=== PATIENT | female | born 1990 | race Caucasian/White ===

== ENCOUNTER 2017-08-20 16:07 | Observation (INO) | payer OTHER ==
[~2017-08-20] VITALS: Ht 160 cm; Wt 70.0 kg
[~2017-08-20 16:07] MED LIST: CELE20TA PO; CELE40TA PO; LORA-392 PO
[2017-08-20] MEDS ORDERED: MORPHINE SULFATE 2 MG/ML INJ IV PUSH PRN (20:15)
[2017-08-20] MEDS ORDERED: ONDANSETRON HCL 4 MG/2 ML VIAL IVP PRN (20:15)
[2017-08-20] MEDS ORDERED: NALOXONE HCL 0.4 MG/ML AMP IV PUSH PRN (20:15)
[2017-08-20] MEDS ORDERED: MORPHINE SULFATE 4 MG/ML INJ IV PUSH PRN (20:15)
[2017-08-20] MEDS ORDERED: SODIUM CHLORIDE 0.9% FLUSH 10 ML FLUSH IV FLUSH PRN (20:15)
[2017-08-20] MEDS ORDERED: ACETAMINOPHEN 325 MG TAB PO PRN (20:15)
[2017-08-20] MEDS: SODIUM CHLOR 0.9% 1000 ML INJ 1,000 ML IV SCH (20:30)
[2017-08-20 20:40] VITALS: BP 100/66; PULSE 52; RESP 17; TEMP 98.2
[2017-08-20] MEDS: SODIUM CHLORIDE 0.9% FLUSH 10 ML FLUSH IV FLUSH SCH (21:00)
[2017-08-20] MEDS ORDERED: PROCHLORPERAZINE INJ 10 MG/2 ML VIAL IV PUSH PRN (23:00)
[2017-08-20 23:44] VITALS: BP 147/73; PULSE 67; RESP 17; TEMP 98.2; O2SAT 99
[2017-08-21] VITALS (10 sets, daily range): BP systolic 119–136; BP diastolic 66–80; PULSE 57–78; RESP 16–18; TEMP 96.6–98.7; O2SAT 97–100
[2017-08-21] MEDS: HYDROmorphone HCL PF 2 MG/ML VIAL IV PUSH PRN ×4 (01:31→22:30)
[2017-08-21 05:20] LABS: AUTOMATED NEUTROPHIL # 10.3 TH/MM3 (1.8-7.7); BASOPHIL % 0.1 % (0.0-2.0); HEMATOCRIT 35.5 % (35.0-46.0); HEMOGLOBIN 12.5 GM/DL (11.6-15.3); LYMPH % 16.1 % (9.0-44.0); LYMPHOCYTE # 2.2 TH/MM3 (1.0-4.8); MEAN CELL VOLUME 93.9 FL (80.0-100.0); MEAN CORPUSCULAR HGB CONC 35.1 % (32.0-36.0); MEAN PLATELET VOLUME 8.7 FL (7.0-11.0); MONO % 8.5 % (0.0-8.0); MONOCYTE # 1.2 TH/MM3 (0-0.9); NEUT % 75.3 % (16.0-70.0); PLATELET COUNT 282 TH/MM3 (150-450); RED BLOOD COUNT 3.78 MIL/MM3 (4.00-5.30); RED CELL DISTRIBUTION WIDTH 13.3 % (11.6-17.2); WHITE BLOOD COUNT 13.7 TH/MM3 (4.0-11.0)
[2017-08-21 05:21] LABS: BICARBONATE 24.1 MEQ/L (21.0-32.0); BLOOD UREA NITROGEN 12 MG/DL (7-18); CALCIUM 7.6 MG/DL (8.5-10.1); CHLORIDE 110 MEQ/L (98-107); CREATININE 0.58 MG/DL (0.50-1.00); GLOMERULAR FILTRATION RATE 124 ML/MIN (>89); GLUCOSE,RANDOM 113 MG/DL (74-106); SODIUM (NA) 141 MEQ/L (136-145)
[2017-08-21 05:25] LABS: TROPONIN I LESS THAN 0.02 NG/ML (0.02-0.05)
[2017-08-21] MEDS: SODIUM CHLOR 0.9% 1000 ML INJ 1,000 ML IV SCH ×3 (08:32→20:30)
[2017-08-21] MEDS: SODIUM CHLORIDE 0.9% FLUSH 10 ML FLUSH IV FLUSH SCH ×2 (08:33→21:00)
--- NOTE | 2017-08-21 08:55 | HHI.HP ---
[facility]Staff Admission Diagnosis Diagnoses: (1) Pancreatitis Diagnosis: Principal Chief Complaint: nausea/vomiting, abdominal pain Travel History International Travel<30 Days: No Contact w/Intl Traveler <30 Da: No History of Present Illness Written by Pam Grewal, acting as scribe for Dr. Boateng on 08/21/17 at 08: 55. 27-year-old female with history of migraines, anxiety, depression, presents with a 2 day history of intractable nausea/vomiting and abdominal pain. Symptoms began at 11pm night 08/19. Last meal 5pm night. Denies eating anything out of the ordinary. She states she presented to [place] [facility] because she had intractable nausea/vomiting every 30-45minutes. She also reports diffuse lower abdominal pain. Denies any headache, visual changes, cough , fevers/chills, night sweats, diarrhea, or constipation. Denies any history of gallbladder disease. She reports occasional episodes of nausea but never this severe. Denies any NSAID use. Takes Celexa and Fioricet on a regular basis. She denies any other medical complaints at this time. Review of Systems Except as stated in HPI: all other systems reviewed are Neg Past Family Social History Past Medical History migraines anxiety depression Past Surgical History No prior surgeries Reported Medications Ativan (Lorazepam) 0.5 Mg Tab 0.5 Mg PO DAILY PRN Celexa (Citalopram Hydrobromide) 40 Mg Tab 40 Mg PO DAILY Celexa (Citalopram Hydrobromide) 20 Mg Tab 20 Mg PO DAILY Fioricet prn Allergies: Coded Allergies: sumatriptan (Verified Allergy, Severe, 08/20/17) Active Ordered Medications Current Medications Medications (Trade) Dose Ordered Sig/Bernarda Route Start Time Stop Time Status Last Admin Sodium Chloride 1,000 ml @ 125 mls/hr Q8H IV 08/20/17 20:30 08/21/17 08:32 (NS Flush) 2 ml UNSCH PRN IV FLUSH 08/20/17 20:15 08/21/17 01:32 (NS Flush) 2 ml BID IV FLUSH 08/20/17 21:00 08/21/17 08:33 (Tylenol) 650 mg Q4H PRN PO 08/20/17 20:15 (Narcan Inj) 0.4 mg UNSCH PRN IV PUSH 08/20/17 20:15 (Compazine Inj) 5 mg Q4H PRN IV PUSH 08/20/17 23:00 08/21/17 08:33 (Dilaudid Pf Inj) 0.5 mg Q4H PRN IV PUSH 08/20/17 23:00 08/21/17 01:31 Family History Mother with cancer "just outside the pelvic wall" Social History Denies tobacco or illicit drug use. Drinks a glass of wine every 3-6months. Had 1 beer the other day. Physical Exam Vital Signs Vital Signs Date Time Temp Pulse Resp B/P (MAP) Pulse Ox O2 Delivery O2 Flow Rate FiO2 08/21/17 04:37 98.2 58 16 120/68 (85) 97 08/21/17 04:00 66 08/21/17 02:16 78 08/20/17 23:44 98.2 67 17 147/73 (97) 99 08/20/17 20:40 98.2 52 17 100/66 (77) Physical Exam GENERAL: Well-nourished, well-developed young female patient in [facility]. Resting in bed. SKIN: Warm and dry. No rash. HEAD: Normocephalic. Atraumatic. EYES: Pupils equal and round. No scleral icterus. No injection or drainage. ENT: No nasal bleeding or discharge. Mucous membranes pink and moist. NECK: Supple. Trachea midline. CARDIOVASCULAR: Regular rate and rhythm. S1, S2 noted. No murmur appreciated. RESPIRATORY: No accessory muscle use. Clear to auscultation. Breath sounds equal bilaterally. GASTROINTESTINAL: Abdomen soft, nondistended, RLQ TTP, no epigastric or RUQ tenderness. Normoactive bowel sounds x4. MUSCULOSKELETAL: No obvious deformities. Extremities without clubbing, cyanosis , or edema. NEUROLOGICAL: Awake and alert. No obvious cranial nerve deficits. Motor grossly within normal limits. Normal speech. PSYCHIATRIC: Appropriate mood and affect; insight and judgment normal. Laboratory Laboratory Tests Test 08/21/17 04:45 White Blood Count 13.7 Red Blood Count 3.78 Hemoglobin 12.5 Hematocrit 35.5 Mean Corpuscular Volume 93.9 Mean Corpuscular Hemoglobin 33.0 Mean Corpuscular Hemoglobin Concent 35.1 Red Cell Distribution Width 13.3 Platelet Count 282 Mean Platelet Volume 8.7 Neutrophils (%) (Auto) 75.3 Lymphocytes (%) (Auto) 16.1 Monocytes (%) (Auto) 8.5 Eosinophils (%) (Auto) 0.0 Basophils (%) (Auto) 0.1 Neutrophils # (Auto) 10.3 Lymphocytes # (Auto) 2.2 Monocytes # (Auto) 1.2 Eosinophils # (Auto) 0.0 Basophils # (Auto) 0.0 CBC Comment DIFF FINAL Differential Comment Blood Urea Nitrogen 12 Creatinine 0.58 Random Glucose 113 Calcium Level 7.6 Sodium Level 141 Potassium Level 3.3 Chloride Level 110 Carbon Dioxide Level 24.1 Anion Gap 7 Estimat Glomerular Filtration Rate 124 Troponin I LESS THAN 0.02 Lipase 471 Result Diagram: 08/21/1744408/21/17444 Caprini VTE Risk Assessment Caprini VTE Risk Assessment: No/Low Risk (score <= 1) Caprini Risk Assessment Model Point Value = 1 Point Value = 2 Point Value = 3 Point Value = 5 Age 41-60 Minor surgery BMI > 25 kg/m2 Swollen legs Varicose veins or History of unexplained or recurrent spontaneous Oral contraceptives or hormone replacement Sepsis (< 1 month) Serious lung disease, including pneumonia (< 1 month) Abnormal pulmonary function Acute myocardial infarction Congestive heart failure (< 1 month) History of inflammatory bowel disease Medical patient at bed rest Age 61-74 Arthroscopic surgery Major open surgery (> 45 min) Laparoscopic surgery (> 45 min) Malignancy Confined to bed (> 72 hours) Immobilizing plaster cast Central venous access Age >= 75 History of VTE Family history of VTE Factor V Leiden Prothrombin [id number] Lupus anticoagulant Anticardiolipin antibodies Elevated serum homocysteine Heparin-induced thrombocytopenia Other congenital or acquired thrombophilia Stroke (< 1 month) Elective arthroplasty Hip, pelvis, or leg fracture Acute spinal cord injury (< 1 month) Prophylaxis Regimen Total Risk Factor Score Risk Level Prophylaxis Regimen 0-1 Low Early ambulation 2 Moderate Order ONE of the following: *Sequential Compression Device (SCD) *Heparin 5000 units SQ BID 3-4 Higher Order ONE of the following medications: *Heparin 5000 units SQ TID *Enoxaparin/Lovenox 40 mg SQ daily (WT < 150 kg, CrCl > 30 mL/min) *Enoxaparin/Lovenox 30 mg SQ daily (WT < 150 kg, CrCl > 10-29 mL/min) *Enoxaparin/Lovenox 30 mg SQ BID (WT < 150 kg, CrCl > 30 mL/min) AND/OR *Sequential Compression Device (SCD) 5 or more Highest Order ONE of the following medications: *Heparin 5000 units SQ TID (Preferred with Epidurals) *Enoxaparin/Lovenox 40 mg SQ daily (WT < 150 kg, CrCl > 30 mL/min) *Enoxaparin/Lovenox 30 mg SQ daily (WT < 150 kg, CrCl > 10-29 mL/min) *Enoxaparin/Lovenox 30 mg SQ BID (WT < 150 kg, CrCl > 30 mL/min) AND *Sequential Compression Device (SCD) Assessment and Plan Problem List: (1) Pancreatitis ICD Code: K85.90 - Acute pancreatitis without necrosis or infection, unspecified Assessment and Plan 27-year-old female with history of migraines, anxiety, depression, presents with a 2 day history of intractable nausea/vomiting and abdominal pain. Acute Pancreatitis: Lipase 1286 upon arrival. With intractable nausea/vomiting. No hx of alcohol abuse. Need to rule out gallstone pancreatitis. +leukocytosis with WBC 12.3 --> 13.7, suspect reactive to vomiting. -Keep NPO for now -Give supportive treatment with IVF, antiemetics, and pain control as needed -Check abdominal CT -Check LFTs -Repeat lipase 471, improved RLQ Abdominal Pain: unclear etiology -check abdominal CT as above -UA unremarkable, however sent for culture, will follow Migraines/Anxiety/Depression: chronic -continue patient's celexa once med rec updated DVT Prophylaxis: teds/scds This note was transcribed by jeri Grewal. I, Dr. Ernesto Boateng personally performed the history, physical exam, and medical decision making; and confirmed the accuracy of the information in the transcribed note. Authenticated by Dr. Ernesto Boateng on 08/21/17 at 10:07. Discussed Condition With Patient, RN Problem Qualifiers (1) Pancreatitis: Pam Grewal PA-C Aug 21, 2017 08:55 Ernesto Boateng MD Aug 21, 2017 10:08
[2017-08-21 09:05] LABS: ALBUMIN 3.6 GM/DL (3.4-5.0); DIRECT BILIRUBIN ADULT 0.1 MG/DL (0.0-0.2)
[2017-08-21 09:07] LABS: INDIRECT BILIRUBIN 0.3 MG/DL (0.0-0.8); TOTAL BILIRUBIN ADULT 0.4 MG/DL (0.2-1.0); TOTAL PROTEIN 6.8 GM/DL (6.4-8.2)
[2017-08-21] MEDS ORDERED: DIATRIZOATE MEGLUM/DIATRIZOATE SOD 9 ML CUP PO ONE ×2 (10:00→10:15)
[2017-08-21] MEDS ORDERED: BUTA1CAP PO (10:15)
[2017-08-21] MEDS ORDERED: IOHEXOL 350 MG/ML 10 ML VIAL (for RAD DIAG) IVCONTRAST ONE (12:51)
[2017-08-21] MEDS ORDERED: PROMETHAZINE INJ 25 MG/ML VIAL IM ONE (13:00)
--- NOTE | 2017-08-21 13:11 | RADRPT ---
EXAM DATE/TIME: 08/21/2017 12:38 [place] COMPARISON: No previous studies available for comparison. INDICATIONS : Right side abdominal pain and nausea. IV CONTRAST: 90 cc Omnipaque 350 (iohexol) IV ORAL CONTRAST: Prescribed oral contrast ingested. RADIATION DOSE: 6.75 CTDIvol (mGy) MEDICAL HISTORY : None SURGICAL HISTORY : None. ENCOUNTER: Initial ACUITY: 3 days PAIN SCALE: 5/10 LOCATION: Right abdomen TECHNIQUE: Volumetric scanning of the abdomen and pelvis was performed. Using automated exposure control and ad justment of the mA and/or kV according to patient size, radiation dose was kept as low as reasonably achievable to obtain optimal diagnostic quality images. DICOM format image data is available electro nically for review and comparison. FINDINGS: LOWER LUNGS: The visualized lower lungs are clear. LIVER: There is decreased attenuation throughout the liver. No focal lesion is seen. There is no dilation of the biliary tree. No calcified gallstones. SPLEEN: Normal size without lesion. PANCREAS: Within normal limits. KIDNEYS: Normal in size and shape. There is no mass, stone or hydronephrosis. ADRENAL GLANDS: Within normal limits. VASCULAR: There is no aortic aneurysm. BOWEL/MESENTERY: The stomach, small bowel, and colon demonstrate no acute abnormality. There is no free intraperitone al air or fluid. The appendix is normal. ABDOMINAL WALL: Within normal limits. RETROPERITONEUM: There is no lymphadenopathy. BLADDER: No wall thickening or mass. REPRODUCTIVE: Within normal limits. INGUINAL: There is no lymphadenopathy or hernia. MUSCULOSKELETAL: Within normal limits for patient age. CONCLUSION: 1. No acute abnormality is seen. 2. Hepatic steatosis. Jhoan Bear MD on August 21, 2017 at 13:07 Board Certified Radiologist. This report was verified electronically.
[2017-08-21] MEDS ORDERED: POTASSIUM CHLOR 20 MEQ PREMIX 100 ML IV ONE (13:15)
[2017-08-21] MEDS ORDERED: METOCLOPRAMIDE HCL 10 MG/2 ML VIAL IV PUSH ONE (17:45)
[2017-08-21] MEDS ORDERED: TRIMETHOBENZAMIDE INJ 200 MG/2 ML VIAL IM PRN (17:45)
[2017-08-21] MEDS ORDERED: PROMETHAZINE INJ 25 MG/ML VIAL IM PRN (17:45)
[2017-08-22] VITALS (11 sets, daily range): BP systolic 119–137; BP diastolic 63–86; PULSE 55–78; RESP 16–18; TEMP 97–100.7; O2SAT 97–100
[2017-08-22] MEDS: SODIUM CHLOR 0.9% 1000 ML INJ 1,000 ML IV SCH ×3 (04:06→22:28)
[2017-08-22] MEDS: HYDROmorphone HCL PF 2 MG/ML VIAL IV PUSH PRN (04:07)
[2017-08-22 07:21] LABS: ALBUMIN 3.5 GM/DL (3.4-5.0); ALT (GPT) 27 U/L (10-53); AST (GOT) 18 U/L (15-37); BICARBONATE 23.6 MEQ/L (21.0-32.0); BLOOD UREA NITROGEN 6 MG/DL (7-18); CALCIUM 8.1 MG/DL (8.5-10.1); CHLORIDE 107 MEQ/L (98-107); CREATININE 0.47 MG/DL (0.50-1.00); GLOMERULAR FILTRATION RATE 158 ML/MIN (>89); GLUCOSE,RANDOM 76 MG/DL (74-106); SODIUM (NA) 139 MEQ/L (136-145)
[2017-08-22 07:23] LABS: ALKALINE PHOSPHATASE 90 U/L (45-117); TOTAL BILIRUBIN ADULT 0.5 MG/DL (0.2-1.0); TOTAL PROTEIN 6.9 GM/DL (6.4-8.2)
[2017-08-22] MEDS ORDERED: POTASSIUM CHLORIDE 20 MEQ CONTROLLED RELEASE TAB PO ONE (08:00)
--- NOTE | 2017-08-22 08:49 | HHI.PR ---
Subjective Remarks Follow up for pancreatitis, migraine, nausea/vomiting. The patient reports abdominal pain resolved. She is still having migraine headache with nausea and occasional vomiting. Denies fevers/chills. RN reports heard patient gagging in the bathroom, but no witnessed vomiting. Discussed with the patient, will stop IV Dilaudid as this can be contributing to nausea/vomiting. Patient requesting phenergan be continued because she did get some relief with this yesterday. She takes fioricet at home for migraines and is agreeable to try this if not vomiting. Objective Vitals Vital Signs Date Time Temp Pulse Resp B/P (MAP) Pulse Ox O2 Delivery O2 Flow Rate FiO2 08/22/17 07:07 99.0 63 18 119/65 (83) 97 08/22/17 04:09 59 08/22/17 03:12 98.0 63 18 121/69 (86) 99 08/22/17 00:09 78 08/21/17 20:03 59 08/21/17 19:45 98.7 57 18 119/66 (83) 100 08/21/17 16:00 98.0 70 18 121/69 (86) 99 08/21/17 15:15 57 08/21/17 12:00 96.6 59 18 133/66 (88) 100 I/O 08/21/17 08/21/17 08/21/17 08/22/17 08/22/17 08/22/17 07:00 15:00 23:00 07:00 15:00 23:00 Intake Total 1000 ml Balance 1000 ml Intake IV Total 1000 ml # Voids 4 Result Diagram: 08/21/17 0445 08/22/17 0556 Imaging Last Impressions Abdomen/Pelvis CT 08/21/17 0000 Signed Impressions: Service Date/Time: Monday, August 21, 2017 12:38 - CONCLUSION: 1. No acute abnormality is seen. 2. Hepatic steatosis. Jhoan Bear MD Objective Remarks GENERAL: Well-nourished, well-developed young female patient in [facility]. SKIN: Warm and dry. No rash. HEENT: Normocephalic. Atraumatic. Pupils equal and round. Mucous membranes pink and moist. CARDIOVASCULAR: Regular rate and rhythm. S1, S2 noted. No murmur appreciated. RESPIRATORY: No accessory muscle use. Clear to auscultation. Breath sounds equal bilaterally. GASTROINTESTINAL: Abdomen soft, non-tender, nondistended. Normoactive bowel sounds x4. MUSCULOSKELETAL: No obvious deformities. Extremities without clubbing, cyanosis , or edema. NEUROLOGICAL: Awake and alert. No obvious cranial nerve deficits. Motor grossly within normal limits. Normal speech. PSYCHIATRIC: Appropriate mood and affect; insight and judgment normal. Medications and IVs Current Medications Medications (Trade) Dose Ordered Sig/Bernarda Route Start Time Stop Time Status Last Admin Sodium Chloride 1,000 ml @ 125 mls/hr Q8H IV 08/20/17 20:30 08/22/17 04:06 (NS Flush) 2 ml UNSCH PRN IV FLUSH 08/20/17 20:15 08/21/17 01:32 (NS Flush) 2 ml BID IV FLUSH 08/20/17 21:00 08/22/17 09:58 (Tylenol) 650 mg Q4H PRN PO 08/20/17 20:15 (Narcan Inj) 0.4 mg UNSCH PRN IV PUSH 08/20/17 20:15 (Phenergan Inj) 12.5 mg Q6H PRN IM 08/21/17 17:45 (Tigan Inj) 200 mg Q6H PRN IM 08/21/17 17:45 (Fioricet 325-50-40) 1 tab Q6H PRN PO 08/22/17 09:00 A/P Problem List: (1) Pancreatitis ICD Code: K85.90 - Acute pancreatitis without necrosis or infection, unspecified Assessment and Plan 27-year-old female with history of migraines, anxiety, depression, presents with a 2 day history of intractable nausea/vomiting and abdominal pain. Acute Pancreatitis: Lipase 1286 upon arrival. With intractable nausea/vomiting. No hx of alcohol abuse. Need to rule out gallstone pancreatitis. +leukocytosis with WBC 12.3 --> 13.7, suspect reactive to vomiting. -Initially kept NPO, now diet advanced -Give supportive treatment with IVF, antiemetics, and pain control as needed -Check abdominal CT -LFTs wnl, and lipase trended 1286 --> 471 --> 239 -pancreatitis resolved Intractable Nausea/Vomiting: possibly secondary to migraine, pancreatitis resolved as above -symptoms not relieved by zofran -continue phenergan IM prn -clear liquid diet for now -1300hrs: patient still vomiting, discussed with Dr. Boateng, will consult gastroenterology for possible EGD RLQ Abdominal Pain: unclear etiology -abdominal CT reviewed and unremarkable -UA unremarkable, urine culture with mixed johny -pain resolved Migraines/Anxiety/Depression: chronic -continue patient's celexa once med rec updated DVT Prophylaxis: teds/scds Problem Qualifiers (1) Pancreatitis: Pam Grewal PA-C Aug 22, 2017 08:49
[2017-08-22] MEDS ORDERED: ACETAMIN 325 MG/BUTALBITAL 50 MG/CAFFEINE 40 MG TAB PO PRN (09:00)
[2017-08-22] MEDS ORDERED: PROMETHAZINE INJ 25 MG/ML VIAL IM ONE (09:00)
[2017-08-22] MEDS: SODIUM CHLORIDE 0.9% FLUSH 10 ML FLUSH IV FLUSH SCH ×2 (09:58→21:00)
[2017-08-22] MEDS ORDERED: PROM25TA10 PO (12:48)
--- NOTE | 2017-08-22 12:48 | HHI.DCPOC ---
Discharge Care Plan Diagnosis: (1) Pancreatitis (2) Migraine (3) Nausea & vomiting Goals to Promote Your Health * To prevent worsening of your condition and complications * To maintain your health at the optimal level Directions to Meet Your Goals Take your medications as prescribed Follow your dietary instruction Follow activity as directed Keep your appointments as scheduled Take your immunizations and boosters as scheduled If your symptoms worsen call your PCP, if no PCP go to Urgent Care Center or Emergency Room Smoking is Dangerous to Your Health. Avoid second hand smoke Call the 24-hour hour crisis hotline for domestic abuse at Pam Grewal PA-C Aug 22, 2017 12:48 pm
[2017-08-22] MEDS ORDERED: PANTOPRAZOLE SODIUM 40 MG VIAL IV PUSH SCH (14:00)
[2017-08-22] MEDS ORDERED: TEMAZEPAM 15 MG CAP PO PRN (19:00)
--- NOTE | 2017-08-22 19:03 | MB ---
cc: ALHAJI CLAROS DATE OF CONSULTATION: 08/22/2017. REASON FOR CONSULTATION: Abdominal pain, nausea and vomiting. DATE OF : 1990. REQUESTING PHYSICIAN: Dr. Srivastava. HISTORY OF PRESENT ILLNESS: Thank you for the consult. The patient is a 27-year-old lady who has been doing okay with no previous issues until . She states she was eating pizza and then after that during the night she vomited the pizza and started having abdominal discomfort and nausea and vomiting. No coffee-ground and no hematemesis. The pain was 5-6/10 in the mid epigastric area. Then today she started having soft stool. She denies any other symptoms. No heavy drinking. No bladder disease. MEDICATIONS: She takes medication for depression and migraine headaches. REVIEW OF SYSTEMS: All twelve-point negative except as noted in the history of present illness. PAST MEDICAL HISTORY: Significant for depression, anxiety and migraine headaches. PAST SURGICAL HISTORY: None. ALLERGIES: 1. SOMA. 2. TRIPTAN. FAMILY HISTORY: Pelvic wall cancer. SOCIAL HISTORY: No tobacco, drugs or alcohol except minimal, all on a social basis. PHYSICAL EXAMINATION: GENERAL: Alert, oriented, in no acute distress. VITAL SIGNS: Vital signs are stable at this time. No fever or chills. HEAD, EYES, EARS, NOSE, THROAT: Pupils are round and reactive to light. NECK: The neck is supple. CHEST: Clear to auscultation and percussion. CARDIAC: Regular rate and rhythm. No murmur or gallop. ABDOMEN: Abdomen soft with mild tenderness in the upper abdomen and diffuse discomfort. EXTREMITIES: No edema, clubbing or cyanosis. NEUROLOGIC: Neurologically intact. No focal abnormality. PSYCHIATRIC: Psychologically appropriate. SKIN: Clear. LABORATORY DATA: Liver function tests completely normal. Lipase 471. Sodium 139, potassium 3.2, BUN 6, creatinine 0.47. White count 13.7, hemoglobin 12.5, platelets 282,000. IMAGING STUDIES: CT scan was negative. ASSESSMENT: This is a 27-year-old lady with abdominal pain, nausea and vomiting, elevated lipase, so she could have mild pancreatitis but also could be gastroenteritis. RECOMMENDATIONS AND PLAN: 1. I recommend conservative management. 2. If she continues to have diarrhea, we could do stool studies. 3. I doubt that any endoscopy will be beneficial at this time. 4. She might have biliary pancreatitis. 5. Will monitor her lipase. Further plan depends on how she is doing. MD SEAMUS Pacheco/MARINO /6:37 PM /6:49 PM
[2017-08-23 00:01] VITALS: PULSE 65
[2017-08-23 03:36] VITALS: BP 126/84; PULSE 62; RESP 18; TEMP 98.4; O2SAT 98
[2017-08-23 04:11] VITALS: PULSE 68
[2017-08-23] MEDS: SODIUM CHLOR 0.9% 1000 ML INJ 1,000 ML IV SCH ×2 (04:15→08:01)
[2017-08-23 06:10] LABS: AUTOMATED NEUTROPHIL # 7.1 TH/MM3 (1.8-7.7); BASOPHIL % 0.4 % (0.0-2.0); EOSINOPHIL % 0.1 % (0.0-4.0); HEMATOCRIT 40.4 % (35.0-46.0); HEMOGLOBIN 14.1 GM/DL (11.6-15.3); LYMPH % 18.7 % (9.0-44.0); LYMPHOCYTE # 1.9 TH/MM3 (1.0-4.8); MEAN CELL VOLUME 93.4 FL (80.0-100.0); MEAN CORPUSCULAR HEMOGLOBIN 32.6 PG (27.0-34.0); MEAN CORPUSCULAR HGB CONC 34.9 % (32.0-36.0); MEAN PLATELET VOLUME 9.2 FL (7.0-11.0); MONO % 10.3 % (0.0-8.0); NEUT % 70.5 % (16.0-70.0); PLATELET COUNT 321 TH/MM3 (150-450); RED BLOOD COUNT 4.32 MIL/MM3 (4.00-5.30); RED CELL DISTRIBUTION WIDTH 13.2 % (11.6-17.2); WHITE BLOOD COUNT 10.1 TH/MM3 (4.0-11.0)
[2017-08-23 06:44] LABS: BICARBONATE 22.7 MEQ/L (21.0-32.0); CALCIUM 8.2 MG/DL (8.5-10.1); CREATININE 0.58 MG/DL (0.50-1.00)
[2017-08-23 07:26] VITALS: BP 113/67; PULSE 63; RESP 20; TEMP 99; O2SAT 99
[2017-08-23 07:30] VITALS: PULSE 63
[2017-08-23] MEDS ORDERED: POTASSIUM CHLORIDE 20 MEQ CONTROLLED RELEASE TAB PO ONE (08:00)
[2017-08-23] MEDS: SODIUM CHLORIDE 0.9% FLUSH 10 ML FLUSH IV FLUSH SCH (09:00)
--- NOTE | 2017-08-23 09:33 | HHI.PR ---
Subjective Remarks Follow up for pancreatitis, migraine, nausea/vomiting. The patient reports improvement this morning. Denies any further headache. No vomiting since last night. Did have 3 episodes of nonbloody diarrhea overnight. Denies fevers/ chills. Denies abdominal pain. She is tolerating some liquids. Denies any other medical complaints at this time. Objective Vitals Vital Signs Date Time Temp Pulse Resp B/P (MAP) Pulse Ox O2 Delivery O2 Flow Rate FiO2 08/23/17 07:26 99.0 63 20 113/67 (82) 99 08/23/17 04:11 68 08/23/17 03:36 98.4 62 18 126/84 (98) 98 08/23/17 00:01 65 08/22/17 23:37 99.1 73 18 130/74 (92) 99 08/22/17 20:05 56 08/22/17 19:43 98.2 59 18 136/83 (100) 100 08/22/17 15:32 100.7 59 18 137/63 (87) 99 08/22/17 15:30 56 08/22/17 11:30 97.0 60 16 136/86 (103) 100 I/O 08/22/17 08/22/17 08/22/17 08/23/17 08/23/17 08/23/17 07:00 15:00 23:00 07:00 15:00 23:00 Intake Total 1000 ml 1000 ml Balance 1000 ml 1000 ml IV Total 1000 ml 1000 ml # Voids 4 4 Result Diagram: 08/23/17 0518 08/23/17 0518 Imaging Last Impressions Abdomen/Pelvis CT 08/21/17 0000 Signed Impressions: Service Date/Time: Monday, August 21, 2017 12:38 - CONCLUSION: 1. No acute abnormality is seen. 2. Hepatic steatosis. Jhoan Bear MD Objective Remarks GENERAL: Well-nourished, well-developed young female patient in [facility]. SKIN: Warm and dry. No rash. HEENT: Normocephalic. Atraumatic. Pupils equal and round. Mucous membranes pink and moist. CARDIOVASCULAR: Regular rate and rhythm. S1, S2 noted. No murmur appreciated. RESPIRATORY: No accessory muscle use. Clear to auscultation. Breath sounds equal bilaterally. GASTROINTESTINAL: Abdomen soft, non-tender, nondistended. Normoactive bowel sounds x4. MUSCULOSKELETAL: No obvious deformities. Extremities without clubbing, cyanosis , or edema. NEUROLOGICAL: Awake and alert. No obvious cranial nerve deficits. Motor grossly within normal limits. Normal speech. PSYCHIATRIC: Appropriate mood and affect; insight and judgment normal. Medications and IVs Current Medications Medications (Trade) Dose Ordered Sig/Bernarda Route Start Time Stop Time Status Last Admin Sodium Chloride 1,000 ml @ 125 mls/hr Q8H IV 08/20/17 20:30 08/23/17 08:01 (NS Flush) 2 ml UNSCH PRN IV FLUSH 08/20/17 20:15 08/21/17 01:32 (NS Flush) 2 ml BID IV FLUSH 08/20/17 21:00 08/22/17 09:58 (Tylenol) 650 mg Q4H PRN PO 08/20/17 20:15 08/23/17 04:16 (Narcan Inj) 0.4 mg UNSCH PRN IV PUSH 08/20/17 20:15 (Phenergan Inj) 12.5 mg Q6H PRN IM 08/21/17 17:45 (Tigan Inj) 200 mg Q6H PRN IM 08/21/17 17:45 (Fioricet 325-50-40) 1 tab Q6H PRN PO 08/22/17 09:00 08/22/17 11:37 (Protonix Inj) 40 mg Q24H IV PUSH 08/22/17 14:00 08/22/17 14:35 (Restoril) 15 mg HS PRN PO 08/22/17 19:00 08/22/17 22:29 (Lactinex) 1 tab Q12HR PO 08/23/17 11:15 08/23/17 11:36 A/P Problem List: (1) Pancreatitis ICD Code: K85.90 - Acute pancreatitis without necrosis or infection, unspecified Assessment and Plan 27-year-old female with history of migraines, anxiety, depression, presents with a 2 day history of intractable nausea/vomiting and abdominal pain. Acute Pancreatitis: Lipase 1286 upon arrival. With intractable nausea/vomiting. No hx of alcohol abuse. Need to rule out gallstone pancreatitis. +leukocytosis with WBC 12.3 --> 13.7, suspect reactive to vomiting. -Initially kept NPO, now diet advanced -Give supportive treatment with IVF, antiemetics, and pain control as needed -Abdominal CT with no acute findings -LFTs wnl, and lipase trended 1286 --> 471 --> 239 -pancreatitis resolved, no further abdominal pain Intractable Nausea/Vomiting: possibly secondary to migraine, pancreatitis resolved as above -symptoms not relieved by zofran -continue phenergan IM prn -clear liquid diet for now, advanced to full liquids -GI consulted, discussed with Dr. Fitzpatrick, patient likely has gastroenteritis, recommended supportive care and no further intervention -symptoms improved today Diarrhea: patient reporting few episodes of diarrhea on 08/22. Suspect secondary to gastroenteritis. -stool cultures sent -started on lactinex -symptoms improved RLQ Abdominal Pain: unclear etiology -abdominal CT reviewed and unremarkable -UA unremarkable, urine culture with mixed johny -pain resolved Migraines/Anxiety/Depression: chronic -continue patient's celexa and fioricet prn Hypokalemia: K 3.0. Secondary to intractable vomiting. -given po KCl replacement 60meq -mag wnl DVT Prophylaxis: teds/scds Discharge Planning Hopefully discharge later today if tolerating oral intake and no further vomiting. See discharge summary. Problem Qualifiers (1) Pancreatitis: Pam Grewal PA-C Aug 23, 2017 9:33 am
[2017-08-23] MEDS ORDERED: LACTOBACILLUS ACIDOPHILUS TAB PO SCH (11:15)
[2017-08-23] MEDS ORDERED: PROMETHAZINE HCL 25 MG TAB PO ONE (11:15)
[2017-08-23 11:55] VITALS: BP 136/86; PULSE 63; RESP 17; TEMP 98.2; O2SAT 100
--- NOTE | 2017-08-23 14:26 | HHI.DS ---
Discharge Summary Admission Date Aug 20, 2017 at 8:00 pm Discharge Date: Aug 23, 2017 Admitting Diagnosis Pancreatitis (1) Pancreatitis ICD Code: K85.90 - Acute pancreatitis without necrosis or infection, unspecified (2) Migraine ICD Code: G43.909 - Migraine, unspecified, not intractable, without status migrainosus (3) Nausea & vomiting ICD Code: R11.2 - Nausea with vomiting, unspecified (4) Gastroenteritis ICD Code: K52.9 - Noninfective gastroenteritis and colitis, unspecified Procedures None Brief History - From Admission 27-year-old female with history of migraines, anxiety, depression, presents with a 2 day history of intractable nausea/vomiting and abdominal pain. Symptoms began at 11pm night 08/19. Last meal 5pm night. Denies eating anything out of the ordinary. She states she presented to [place] [facility] because she had intractable nausea/vomiting every 30-45minutes. She also reports diffuse lower abdominal pain. Denies any headache, visual changes, cough , fevers/chills, night sweats, diarrhea, or constipation. Denies any history of gallbladder disease. She reports occasional episodes of nausea but never this severe. Denies any NSAID use. Takes Celexa and Fioricet on a regular basis. She denies any other medical complaints at this time. CBC/BMP: 08/23/17 0518 08/23/17 0518 Significant Findings Laboratory Tests Test 08/21/17 04:45 08/21/17 11:44 08/22/17 05:56 08/23/17 05:18 White Blood Count 13.7 TH/MM3 (4.0-11.0) Red Blood Count 3.78 MIL/MM3 (4.00-5.30) Neutrophils (%) (Auto) 75.3 % (16.0-70.0) 70.5 % (16.0-70.0) Monocytes (%) (Auto) 8.5 % (0.0-8.0) 10.3 % (0.0-8.0) Neutrophils # (Auto) 10.3 TH/MM3 (1.8-7.7) Monocytes # (Auto) 1.2 TH/MM3 (0-0.9) 1.0 TH/MM3 (0-0.9) Random Glucose 113 MG/DL (74-106) Calcium Level 7.6 MG/DL (8.5-10.1) 8.1 MG/DL (8.5-10.1) 8.2 MG/DL (8.5-10.1) Potassium Level 3.3 MEQ/L (3.5-5.1) 3.2 MEQ/L (3.5-5.1) 3.0 MEQ/L (3.5-5.1) Chloride Level 110 MEQ/L (98-107) Troponin I LESS THAN 0.02 NG/ML LESS THAN 0.02 NG/ML Lipase 471 U/L (73-393) Blood Urea Nitrogen 6 MG/DL (7-18) Creatinine 0.47 MG/DL (0.50-1.00) Imaging Last Impressions Abdomen/Pelvis CT 08/21/17 0000 Signed Impressions: Service Date/Time: Monday, August 21, 2017 12:38 - CONCLUSION: 1. No acute abnormality is seen. 2. Hepatic steatosis. Jhoan Bear MD PE at Discharge GENERAL: Well-nourished, well-developed young female patient in [place]. SKIN: Warm and dry. No rash. HEENT: Normocephalic. Atraumatic. Pupils equal and round. Mucous membranes pink and moist. CARDIOVASCULAR: Regular rate and rhythm. S1, S2 noted. No murmur appreciated. RESPIRATORY: No accessory muscle use. Clear to auscultation. Breath sounds equal bilaterally. GASTROINTESTINAL: Abdomen soft, non-tender, nondistended. Normoactive bowel sounds x4. MUSCULOSKELETAL: No obvious deformities. Extremities without clubbing, cyanosis , or edema. NEUROLOGICAL: Awake and alert. No obvious cranial nerve deficits. Motor grossly within normal limits. Normal speech. PSYCHIATRIC: Appropriate mood and affect; insight and judgment normal. Pt update on day of discharge Follow up for gastroenteritis, pancreatitis, migraine. No further vomiting or diarrhea today. Patient tolerating liquid diet. Migraine resolved. No abdominal pain, fevers, or chills. Patient requesting to be discharged. Hospital Course 27-year-old female with history of migraines presented to [facility] ER with abdominal pain, nausea, and vomiting. She was found to have a lipase of 1286 with LFTs wnl, therefore she was admitted to [facility] for further evaluation and treatment. The patient reported intractable nausea and vomiting. She denied any epigastric or right upper quadrant pain, but did report right lower quadrant abdominal pain, therefore abdominal CT was checked with no acute findings. She was given IV fluids, multiple antiemetics, and pain control with IV Dilaudid. Her lipase trended down to 239. The patient then reporting migraine headache. IV Dilaudid was discontinued as this was thought to be contributing to rebound headaches and recurrent vomiting. She was started back on her Fioricet prn and migraine resolved. Nausea and vomiting was not relieved by Zofran, therefore she was given multiple doses of IM Phenergan with some relief. Patient continued to report vomiting and now with diarrhea, stool cultures sent. GI was consulted with ongoing symptoms, discussed with Dr. Fitzpatrick, thought symptoms secondary to gastroenteritis, supportive treatment recommended, no further work up. On the day of discharge, patient's symptoms improved, tolerating oral intake, no further vomiting, and diarrhea improved. Patient requesting discharge home. Given prescription for phenergan prn. Pt Condition on Discharge: Stable Discharge Disposition: Discharge Home Discharge Time: <= 30 minutes Discharge Instructions DIET: Follow Instructions for: As Tolerated, No Restrictions, Soft Diet Activities you can perform: Regular-No Restrictions Follow up Referrals: PCP Follow-up - 1 Week New Medications: Promethazine (Phenergan) 25 Mg Tablet 25 MG PO Q6H PRN for NAUSEA OR VOMITING, #15 TAB 0 Refills Continued Medications: Rjvhpltbot-Bkwwfiguzasil-Ayrxcagc (Fioricet) 50-300-40 Mg Cap 1 CAP PO Q4H PRN for HEADACHE, CAP 0 Refills Citalopram (Celexa) 20 Mg Tab 20 MG PO DAILY for Control Depression, #30 TAB 0 Refills Citalopram (Celexa) 40 Mg Tab 40 MG PO DAILY for Control Depression, #30 TAB 0 Refills Pam Grewal PA-C Aug 23, 2017 14:26 Ernesto Boateng MD Aug 23, 2017 15:26
== END 2017-08-23 14:56 | disposition home or self-care (01) ==
LOC: NEDDLT 16:07 → NEPHCDU 20:00
PROVIDERS: ADMIT Family Medicine; ATTEND Family Medicine
DX: K85.90 Acute pancreatitis without necrosis or infection, unspecified (principal); G43.909 Migraine, unspecified, not intractable, without status migrainosus; R74.8 Abnormal levels of other serum enzymes; E87.6 Hypokalemia; K52.9 Noninfective gastroenteritis and colitis, unspecified; F41.9 Anxiety disorder, unspecified; F32.9 Major depressive disorder, single episode, unspecified
CPT/HCPCS: 74177; 80048; 80053; 80076; 83690; 83735; 84484; 85025; 87506; 96361; 96365; 96366; 96372; 96375; 96376; C9113; G0378; J0780; J1170; J2270; J2550; J2765; J3480; J7030; Q0169; Q9963; Q9967